=== PATIENT | male | born 1985 | race Two or more races ===

== ENCOUNTER → 2018-10-01 | Outpatient (CLI) | payer OTHER ==
--- NOTE | 2018-10-01 14:34 | RAD ---
3 views right and left shoulder 10/01/2018 CLINICAL INDICATION: Chronic right left shoulder pain. COMPARISON: None. FINDINGS: 3 view right shoulder: No acute fracture or traumatic malalignment. Joint spaces maintained. The periarticular soft tissues are unremarkable. 3 views left shoulder: No acute fracture or traumatic malalignment. Joint spaces maintained. The periarticular soft tissues are unremarkable. IMPRESSION: No acute osseous abnormality. Electronically signed by: Juan Miguel Haley MD (10/01/2018 2:30 PM) [facility]
== END | disposition home or self-care (01) ==
LOC: RAD 12:55
PROVIDERS: ATTEND Family Medicine
DX: M25.511 Pain in right shoulder (principal); M25.512 Pain in left shoulder; G89.29 Other chronic pain
CPT/HCPCS: 73030